=== PATIENT | female | born 1950 | race African-American/Black ===

== ENCOUNTER 2020-12-04 03:21 | Emergency (ER) | payer MEDICARE, MEDICAID ==
[~2020-12-04] VITALS: Ht 170.2 cm; Wt 113.0 kg
[2020-12-04] MEDS ORDERED: MAGNESIUM/ALUMINUM HYDROXIDE/SIMETHICONE 30ML UDC PO ONE (04:30)
[2020-12-04] MEDS ORDERED: VISCOUS LIDOCAINE 2% 15 ML UDC PO ONE (04:30)
[2020-12-04 04:51] LABS: CHLORIDE 105 mEq/L (98-107)
[2020-12-04 04:52] LABS: BASOPHILS % 0.5 % (0.0-2.0); EOSINOPHILS % 2.4 % (0.0-5.0); HEMOGLOBIN. 12.2 g/dL (12.0-16.0); LYMPHOCYTES % 33.8 % (20.0-50.0); MEAN CORPUSCULAR HEMOGLOBIN 27.7 pg (28.0-32.0); MEAN PLATELET VOLUME 7.9 fl (7.4-10.4); MONOCYTES % 9.7 % (2.0-8.0); NEUTROPHILS % 53.6 % (40.0-76.0); PLATELET 273 x1000/uL (130-400); RED CELL DISTRIBUTION WIDTH 14.7 % (11.6-14.6)
[2020-12-04] MEDS ORDERED: FAMO20TA8 MT (06:31)
[2020-12-04 07:25] VITALS: BP 155/78
== END 2020-12-04 07:28 | disposition home or self-care (01) ==
LOC: ER 03:21
DX: I71.2 Thoracic aortic aneurysm, without rupture (principal); K29.70 Gastritis, unspecified, without bleeding; G47.30 Sleep apnea, unspecified; I10 Essential (primary) hypertension; E78.00 Pure hypercholesterolemia, unspecified; J44.9 Chronic obstructive pulmonary disease, unspecified; Z96.659 Presence of unspecified artificial knee joint; Z90.49 Acquired absence of other specified parts of digestive tract; Z87.891 Personal history of nicotine dependence
CPT/HCPCS: 36415; 71045; 71275; 80053; 83880; 84484; 85025; 85379; 93005; 99285

== ENCOUNTER 2021-04-16 18:32 | Emergency (ER) | payer MEDICARE, MEDICAID ==
[~2021-04-16] VITALS: Ht 165.1 cm; Wt 105.0 kg
[~2021-04-16 18:32] MED LIST: FAMO20TA8 MT
[2021-04-16 18:34] VITALS: BP 149/90
== END 2021-04-16 18:58 | disposition left against medical advice (07) ==
LOC: ER 18:32
DX: Z53.21 Procedure and treatment not carried out due to patient leaving prior to being seen by health care provider (principal); I10 Essential (primary) hypertension; E78.00 Pure hypercholesterolemia, unspecified; J44.9 Chronic obstructive pulmonary disease, unspecified; Z96.659 Presence of unspecified artificial knee joint; Z98.890 Other specified postprocedural states

== ENCOUNTER 2021-06-24 11:15 | Emergency (ER) | payer MEDICARE, MEDICAID ==
[~2021-06-24] VITALS: Ht 170.2 cm; Wt 122.0 kg
[2021-06-24 11:30] VITALS: BP 112/78
== END 2021-06-24 14:44 | disposition home or self-care (01) ==
LOC: ER 11:15
DX: U07.1 COVID-19 (principal); J44.1 Chronic obstructive pulmonary disease with (acute) exacerbation; E78.00 Pure hypercholesterolemia, unspecified; I10 Essential (primary) hypertension
CPT/HCPCS: 71045; 87426; 87804; 93005; 99285

== ENCOUNTER 2021-06-30 11:36 | Inpatient (IN) | payer MEDICARE, MEDICAID ==
[~2021-06-30] VITALS: Ht 170.2 cm; Wt 121.7 kg
[2021-06-30] MEDS ORDERED: DEXAMETHASONE 10 MG/ML VIAL IV ONE (12:15)
[2021-06-30 12:27] LABS: BG BASE EXCESS 9.8 mmol/L (-2.0-2.0); BG CARBOXYHEMOGLOBIN 2.6 % (0.5-1.5); BG DEOXYHEMOGLOBIN 5.1 % (0.0-5.0); BG HCO3 ACT 32.7 mmol/L (22.0-26.0); BG METHEMOGLOBIN 0.3 % (0.0-1.5); BG OXYGEN SATURATION 94.7 % (92.0-98.5); BG PCO2 38.2 mmHg (35.0-45.0); BG PH 7.551 (7.350-7.450); BG PO2 69.8 mmHg (75.0-100.0); BG SAMPLE SITE RIGHT RADIAL; BG TOTAL HEMOGLOBIN 13.8 g/dL (12.0-18.0); BG VENT MODE ROOM AIR
[2021-06-30 13:17] LABS: BASOPHILS % 0.8 % (0.0-2.0); EOSINOPHILS % 1.3 % (0.0-5.0); HEMATOCRIT. 39.7 % (36.0-48.0); HEMOGLOBIN. 12.9 g/dL (12.0-16.0); LYMPHOCYTES % 35.9 % (20.0-50.0); MEAN CORPUSCULAR HEMOGLOBIN 26.9 pg (28.0-32.0); MEAN PLATELET VOLUME 7.7 fl (7.4-10.4); MONOCYTES % 7.8 % (2.0-8.0); NEUTROPHILS % 54.2 % (40.0-76.0); PLATELET 261 x1000/uL (130-400); RED BLOOD CELL COUNT 4.78 mill/uL (4.2-5.4); RED CELL DISTRIBUTION WIDTH 15.4 % (11.6-14.6)
[2021-06-30 13:26] LABS: CHLORIDE 99 mEq/L (98-107)
[2021-06-30] MEDS ORDERED: SODIUM CHLORIDE 0.9% 1,000 ML IV ONE (16:00)
[2021-06-30] MEDS ORDERED: ASPIRIN 81MG TABLET PO ONE (16:00)
[2021-06-30 18:48] LABS: CLARITY URINE CLEAR (CLEAR); COLOR URINE YELLOW (YELLOW); KETONES URINE NEGATIVE (NEGATIVE); LEUKOCYTE ESTERASE URINE NEGATIVE (NEGATIVE); NITRITE URINE NEGATIVE (NEGATIVE); OCCULT BLOOD URINE NEGATIVE (NEGATIVE); PH URINE 6.5 (4.5-8.0); PROTEIN URINE NEGATIVE (NEGATIVE); SPECIFIC GRAVITY URINE 1.012 (1.005-1.030)
[2021-06-30] MEDS ORDERED: ALBUTEROL 6.7GM HFA INHALER ORI PRN (21:45)
[2021-06-30] MEDS ORDERED: ZOLPIDEM TARTRATE 5MG TABLET PO PRN (21:45)
[2021-06-30] MEDS ORDERED: ONDANSETRON HCL 4MG/2ML INJ IV PRN (21:45)
[2021-06-30] MEDS ORDERED: ACETAMINOPHEN 325MG TABLET PO PRN (21:45)
[2021-06-30] MEDS ORDERED: CLONIDINE 0.1MG TABLET PO PRN (21:45)
[2021-06-30] MEDS ORDERED: DIPHENHYDRAMINE 50MG/ML VIAL IV PRN (21:45)
[2021-06-30] MEDS ORDERED: MAGNESIUM/ALUMINUM HYDROXIDE/SIMETHICONE 30ML UDC PO PRN (21:45)
[2021-06-30] MEDS: SODIUM CHLORIDE 0.9% INJ 3ML FLUSH IVF SCH (22:13)
[2021-06-30] MEDS: AZITHROMYCIN 500MG/250ML 250 ML IV SCH (22:24)
[2021-06-30] MEDS ORDERED: ERGOCALCIFEROL 50000UNITS CAPSULE PO SCH (23:00)
[2021-06-30] MEDS: ENOXAPARIN 30MG/0.3ML SYR SUBCUT SCH (23:28)
[2021-07-01] MEDS: SODIUM CHLORIDE 0.9% INJ 3ML FLUSH IVF SCH ×3 (06:00→14:07)
[2021-07-01] MEDS: DEXAMETHASONE 10 MG/ML VIAL IV SCH (09:39)
[2021-07-01] MEDS: ENOXAPARIN 30MG/0.3ML SYR SUBCUT SCH ×2 (09:40→21:00)
[2021-07-01] MEDS: AZITHROMYCIN 500MG/250ML 250 ML IV SCH (22:23)
[2021-07-02] MEDS: SODIUM CHLORIDE 0.9% INJ 3ML FLUSH IVF SCH ×3 (07:40→21:42)
[2021-07-02] MEDS: ENOXAPARIN 30MG/0.3ML SYR SUBCUT SCH ×2 (09:35→21:42)
[2021-07-02] MEDS: DEXAMETHASONE 10 MG/ML VIAL IV SCH (09:35)
[2021-07-02] MEDS ORDERED: ERGOCALCIFEROL 50000UNITS CAPSULE PO SCH (18:15)
[2021-07-02 20:00] VITALS: BP 126/74
[2021-07-02 20:40] VITALS: BP 116/86
[2021-07-02] MEDS: ASCORBIC ACID 500 MG TABLET PO SCH (21:41)
[2021-07-02] MEDS ORDERED: AZITHROMYCIN 500MG in DEXTROSE 5% WATER 250ML IV NR (22:00)
[2021-07-03] VITALS: BP 121/85
[2021-07-03 04:00] VITALS: BP 130/68
[2021-07-03] MEDS: SODIUM CHLORIDE 0.9% INJ 3ML FLUSH IVF SCH ×4 (06:20→20:25)
[2021-07-03 08:00] VITALS: BP 147/60
[2021-07-03] MEDS: ASCORBIC ACID 500 MG TABLET PO SCH ×2 (08:41→20:36)
[2021-07-03] MEDS: DEXAMETHASONE 10 MG/ML VIAL IV SCH (08:41)
[2021-07-03] MEDS: ENOXAPARIN 30MG/0.3ML SYR SUBCUT SCH ×3 (08:42→21:00)
[2021-07-03 12:00] VITALS: BP 125/80
[2021-07-03 16:00] VITALS: BP 126/52
[2021-07-03] MEDS ORDERED: ZOLPIDEM TARTRATE 5MG TABLET PO PRN (19:45)
[2021-07-03 20:00] VITALS: BP 168/69
[2021-07-03] MEDS ORDERED: PROMETHAZINE/DEXTROMETHORPHAN 6.25-15MG/5ML BOTTLE 120ML PO PRN (20:45)
[2021-07-03] MEDS ORDERED: BENZONATATE 100MG CAPSULE PO PRN (20:45)
[2021-07-03] MEDS ORDERED: AZITHROMYCIN 500MG in DEXTROSE 5% WATER 250ML IV SCH (21:00)
[2021-07-04] VITALS: BP 130/72
[2021-07-04] MEDS: ACETAMINOPHEN 325MG TABLET PO PRN ×2 (00:48→06:43)
[2021-07-04 04:00] VITALS: BP 142/77
[2021-07-04 08:00] VITALS: BP 151/89
[2021-07-04] MEDS: ASCORBIC ACID 500 MG TABLET PO SCH (09:11)
[2021-07-04] MEDS: ENOXAPARIN 30MG/0.3ML SYR SUBCUT SCH (09:11)
[2021-07-04] MEDS: DEXAMETHASONE 10 MG/ML VIAL IV SCH (09:11)
[2021-07-04 09:55] LABS: BG BASE EXCESS 10.2 mmol/L (-2.0-2.0); BG CARBOXYHEMOGLOBIN 0.5 % (0.5-1.5); BG DEOXYHEMOGLOBIN 3.6 % (0.0-5.0); BG FRACTION INSPIRED OXYGEN 28; BG HCO3 ACT 36.6 mmol/L (22.0-26.0); BG METHEMOGLOBIN 0.1 % (0.0-1.5); BG OXYGEN SATURATION 96.4 % (92.0-98.5); BG OXYHEMOGLOBIN 95.8 % (94.0-97.0); BG PH 7.418 (7.350-7.450); BG SAMPLE SITE LEFT BRACHIAL; BG VENT MODE NASAL CANNULA
[2021-07-04 12:00] VITALS: BP 120/47
[2021-07-04] MEDS: SODIUM CHLORIDE 0.9% INJ 3ML FLUSH IVF SCH ×2 (13:31→19:28)
[2021-07-04 16:00] VITALS: BP 121/54
[2021-07-04 20:19] VITALS: BP 129/72
== END 2021-07-04 21:20 | disposition home or self-care (01) | DRG 871 ==
LOC: ER 11:36 → MICUSO 17:23 → EDBEDREQ 17:32 → EDBEDREQTM 17:32 → 7WST 07-02 17:51
PROVIDERS: ADMIT Internal Medicine; ATTEND Internal Medicine
DX: A41.89 Other specified sepsis (principal); U07.1 COVID-19; J96.21 Acute and chronic respiratory failure with hypoxia; J12.82 Pneumonia due to coronavirus disease 2019; E44.1 Mild protein-calorie malnutrition; J44.0 Chronic obstructive pulmonary disease with (acute) lower respiratory infection; Z68.41 Body mass index [BMI] 40.0-44.9, adult; E78.00 Pure hypercholesterolemia, unspecified; I10 Essential (primary) hypertension; E78.5 Hyperlipidemia, unspecified; F17.210 Nicotine dependence, cigarettes, uncomplicated; G47.33 Obstructive sleep apnea (adult) (pediatric); E87.6 Hypokalemia; E66.01 Morbid (severe) obesity due to excess calories; R00.1 Bradycardia, unspecified; Z20.828 Contact with and (suspected) exposure to other viral communicable diseases
CPT/HCPCS: 36415; 36600; 71045; 80053; 81003; 82375; 82805; 83605; 83880; 84145; 84484; 85025; 87077; 87426; 87635; 93005; 94640; 99285; J0456; J1100; J1650; J2405; J7030; J7060; U0003

== ENCOUNTER 2021-10-25 19:03 | Emergency (ER) | payer MEDICARE, MEDICAID ==
[~2021-10-25] VITALS: Ht 170.2 cm; Wt 111.0 kg
[2021-10-25 20:11] LABS: BG BASE EXCESS 7.1 mmol/L (-2.0-2.0); BG CARBOXYHEMOGLOBIN 0.2 % (0.5-1.5); BG DEOXYHEMOGLOBIN 2.3 % (0.0-5.0); BG FRACTION INSPIRED OXYGEN 32; BG HCO3 ACT 30.3 mmol/L (22.0-26.0); BG METHEMOGLOBIN 0.2 % (0.0-1.5); BG OXYGEN SATURATION 97.7 % (92.0-98.5); BG OXYHEMOGLOBIN 97.3 % (94.0-97.0); BG PCO2 38.1 mmHg (35.0-45.0); BG PH 7.519 (7.350-7.450); BG PO2 98.8 mmHg (75.0-100.0); BG SAMPLE SITE RIGHT RADIAL; BG TOTAL HEMOGLOBIN 11.5 g/dL (12.0-18.0); BG VENT MODE NASAL CANNULA
[2021-10-25 20:12] LABS: CHLORIDE 104 mEq/L (98-107)
[2021-10-25 20:13] LABS: BASOPHILS % 0.4 % (0.0-2.0); HEMATOCRIT. 31.3 % (36.0-48.0); HEMOGLOBIN. 10.5 g/dL (12.0-16.0); LYMPHOCYTES % 29.2 % (20.0-50.0); MEAN CORPUSCULAR HEMOGLOBIN 27.9 pg (28.0-32.0); MEAN CORPUSCULAR VOLUME 83.5 fL (81.0-99.0); MEAN PLATELET VOLUME 7.1 fl (7.4-10.4); MONOCYTES % 11.3 % (2.0-8.0); NEUTROPHILS % 56.1 % (40.0-76.0); PLATELET 299 x1000/uL (130-400); RED BLOOD CELL COUNT 3.76 mill/uL (4.2-5.4); RED CELL DISTRIBUTION WIDTH 14.8 % (11.6-14.6)
[2021-10-25 20:23] LABS: ETHANOL BLOOD < 10 mg/dL
[2021-10-25 20:30] VITALS: BP 136/71
[2021-10-25] MEDS ORDERED: IPRATROPIUM/ALBUTEROL 0.5-3(2.5)MG/3ML NEB HHN ONE (20:45)
[2021-10-25] MEDS ORDERED: IPRATROPIUM/ALBUTEROL 0.5-3(2.5)MG/3ML NEB HHN NR (20:50)
[2021-10-25] MEDS ORDERED: PREDNISONE 20MG TABLET PO NR (20:51)
[2021-10-25] MEDS ORDERED: PRED10TA MT (22:51)
[2021-10-25] MEDS ORDERED: ALBU6.7H9 INH (22:51)
[2021-10-25 23:29] LABS: *AMPHETAMINES SCREEN URINE NEGATIVE (NEGATIVE); *BARBITURATES SCREEN URINE NEGATIVE (NEGATIVE); *BENZODIAZEPINES SCREEN URINE NEGATIVE (NEGATIVE); *COCAINE SCREEN URINE NEGATIVE (NEGATIVE); CANNABINOID URINE SCREEN NEGATIVE (NEGATIVE); METHADONE URINE SCREEN NEGATIVE (NEGATIVE); OPIATES URINE SCREEN NEGATIVE (NEGATIVE); PHENCYCLIDINE URINE SCREEN NEGATIVE (NEGATIVE)
== END 2021-10-26 00:16 | disposition home or self-care (01) ==
LOC: ER 19:03
DX: J44.1 Chronic obstructive pulmonary disease with (acute) exacerbation (principal); I10 Essential (primary) hypertension; E78.00 Pure hypercholesterolemia, unspecified; Z13.9 Encounter for screening, unspecified
CPT/HCPCS: 36415; 36600; 71045; 80053; 80305; 80320; 82375; 82805; 83605; 83690; 83880; 84484; 85025; 93005; 94640; 99285; J7512; G0480

== ENCOUNTER 2021-11-08 18:35 | Emergency (ER) | payer MEDICARE, MEDICAID ==
[~2021-11-08] VITALS: Ht 170.2 cm; Wt 112.0 kg
[~2021-11-08 18:35] MED LIST changes: +ALBU6.7H9 INH; +PRED10TA MT
[2021-11-08 18:37] VITALS: BP 148/98
== END 2021-11-09 00:35 | disposition left against medical advice (07) ==
LOC: ER 18:35
DX: Z53.21 Procedure and treatment not carried out due to patient leaving prior to being seen by health care provider (principal)
CPT/HCPCS: 93005

== ENCOUNTER → 2022-01-24 | Day surgery (SDC) | payer MEDICARE, MEDICAID ==
[~2022-01-24] VITALS: Ht 170.2 cm; Wt 115.7 kg
[~2022-01-24] MED LIST changes: +ACETAMINOPHEN 325MG TABLET PO PRN; +AMLO5TAB88 MT; +ATROPINE SULFATE 1MG/10ML SYR IV PRN; +BUDE6HFA INH; +FENTANYL CITRATE/PF 50MCG/ML 2ML VIAL ONE; +FURO-151 MT; +HEPARIN 1000 UNITS/ML 10ML ONE; +IODIXANOL 320MG/ML 100 ML BOTTLE IV ONE; +LIDOCAINE HCL/PF 1% 10 MG/ML 5ML VIAL ONE; +LOSA1TAB40 MT; +LOVA40TA73 MT; +MIDAZOLAM HCL 2 MG/2 ML VIAL ONE; +NICARDIPINE 100MCG/ML 10ML VIAL (CATH LAB) IV ONE; +NITROGLYCERIN 50MCG/ML 10ML VIAL (CATH LAB) IV ONE; +ONDANSETRON HCL 4MG/2ML INJ IV PRN; +OXYB5TAB17 PO; +POTA-79 MT
== END | disposition home or self-care (01) ==
LOC: CCL 08:26
PROVIDERS: ATTEND Specialist
DX: I25.10 Atherosclerotic heart disease of native coronary artery without angina pectoris (principal); I11.9 Hypertensive heart disease without heart failure; E78.5 Hyperlipidemia, unspecified; E66.9 Obesity, unspecified; G47.33 Obstructive sleep apnea (adult) (pediatric); Z79.899 Other long term (current) drug therapy; Z98.890 Other specified postprocedural states; Z87.891 Personal history of nicotine dependence; Z20.822 Contact with and (suspected) exposure to COVID-19
CPT/HCPCS: 87426; 93458; 99152; C1769; C1887; C1893; C9803; J1644; J2250; J3010; J3490; Q9967; G0500

== ENCOUNTER → 2025-01-13 | Outpatient (CLI) | payer MEDICARE, MEDICAID ==
[~2025-01-13] MED LIST changes: -ACETAMINOPHEN 325MG TABLET PO PRN; +ALBU6.7H3 INH; -ALBU6.7H9 INH; +ASPI-1160 PO; +ATOR40TA70 PO; -ATROPINE SULFATE 1MG/10ML SYR IV PRN; -BUDE6HFA INH; +DESL5TAB45 MT; -FAMO20TA8 MT; -FENTANYL CITRATE/PF 50MCG/ML 2ML VIAL ONE; +FLUT1BLS3; -FURO-151 MT; -HEPARIN 1000 UNITS/ML 10ML ONE; -IODIXANOL 320MG/ML 100 ML BOTTLE IV ONE; -LIDOCAINE HCL/PF 1% 10 MG/ML 5ML VIAL ONE; +LOSA100T33 MT; -LOSA1TAB40 MT; -LOVA40TA73 MT; +METH4TAB95 MT; -MIDAZOLAM HCL 2 MG/2 ML VIAL ONE; -NICARDIPINE 100MCG/ML 10ML VIAL (CATH LAB) IV ONE; -NITROGLYCERIN 50MCG/ML 10ML VIAL (CATH LAB) IV ONE; -ONDANSETRON HCL 4MG/2ML INJ IV PRN; -OXYB5TAB17 PO; -POTA-79 MT; -PRED10TA MT
== END | disposition home or self-care (01) ==
LOC: CT 09:30
PROVIDERS: ATTEND Internal Medicine Critical Care Medicine
DX: I67.82 Cerebral ischemia (principal); R42 Dizziness and giddiness